=== PATIENT | female | born 1950 | race Hispanic/Latino ===

== ENCOUNTER 2017-08-06 08:04 | Outpatient (CLI) | payer OTHER | END 2017-08-06 08:05 | disposition home or self-care (01) | LOC: BICCT 08:04 | PROVIDERS: ATTEND Orthopaedic Surgery | DX: S92.002A Unspecified fracture of left calcaneus, initial encounter for closed fracture (principal); S92.012A Displaced fracture of body of left calcaneus, initial encounter for closed fracture ==

== ENCOUNTER → 2017-08-13 | Day surgery (SDC) | payer OTHER ==
[2017-08-12 10:17] VITALS: BMI 22.3
[~2017-08-13] MED LIST: CEFAZOLIN/Water 2 GM/20 ML SYRINGE ONE; Fentanyl 100 MCG/2 ML VIAL IV PRN; Fentanyl 100 MCG/2 ML VIAL ONE; Fentanyl 250 MCG/5 ML VIAL ONE; HYDROcodone/Acetaminophen 5/325 mg Tablet PO PRN; Midazolam HCl 2 mg/2 ml Vial ONE; Ondansetron HCl/PF 4 MG/2 ML Vial IVP PRN; Promethazine HCl 25 MG/ML VIAL IM PRN; Ropivacaine 0.2% 550 ML 550 ML NERVE BLCK SCH; Zolpidem Tartrate 5 MG TAB PO PRN; traMADol HCl 50 MG TAB PO PRN
--- NOTE | 2017-08-13 11:27 | RAD ---
TWO FLUOROSCOPIC VIEWS OF THE LEFT HEEL: Indication: Surgical repair. Comparison: None. FINDINGS: There is a lateral plate and screw fixating a comminuted calcaneal fracture. The calcaneal fracture p rojects in near anatomic alignment. Hardware projects in the expected position. Total fluoroscopic time: 17.8 seconds. Total exposure: 0.61 mGy*cm^2. IMPRESSION: ORIF left calcaneal fracture. POS: PELON
--- NOTE | 2017-08-13 16:47 | OP ---
DATE OF PROCEDURE: 08/13/2017 PREOPERATIVE DIAGNOSIS: Joint depression, calcaneal fracture, left. POSTOPERATIVE DIAGNOSIS: Joint depression, calcaneal fracture, left. SURGICAL PROCEDURE: Open reduction internal fixation, left calcaneus. ANESTHESIA: General. SURGEON: Enrrique Valles M.D. MEDICAL MANAGEMENT SPECIALIST: Tyson Lopez PA-C. TOURNIQUET TIME: 76 minutes at 300 mmHg. IMPLANTS: Synthes 2.7 mm variable angle locking calcaneal plate (small) with a combination of 2.7 mm metaphyseal and 2.7 mm locking screws. COMPLICATIONS: None. DRAINS: None. SPECIMEN: None. OUTCOME: Satisfactory. INDICATIONS: Ms. Aragon is a pleasant 67-year-old lady status post left calcaneal fracture. She i s now approximately a week and a half out from injury with CT scanning confirming this large depresse d joint segment and shortening of the calcaneus. After discussion with patient including risks and b enefits, we decided to proceed with open reduction internal fixation. PROCEDURE IN DETAIL: The patient was brought to the operating room and a timeout performed followed by induction of general anesthesia. The patient was positioned in a right lateral decubitus position and a sterile prep and drape was performed of the left lower extremity. The limb was then exsanguin ated with Esmarch bandage, tourniquet inflated to 300 mmHg. Next, an L-shaped lateral incision was m sony following the lateral border of the Achilles tendon and then curving 90 degrees at the posterior aspect of the calcaneus heading towards the calcaneocuboid joint. This flap was then developed full thickness all the way down to periosteum of the calcaneus. The dissection was carried distally such that the peroneal tendon was identified and this was reflected with a flap. Once fully developed, a K-wire was passed up the tip of the lateral malleolus and then bent to serve as a retractor. A secon d K-wire was placed in the cuboid also bent to place function as a retractor and then a final K-wire was placed at the anterior portion of the calcaneus again to function as a retractor. Once performed , the lateral wall was freed and hinged such that the comminuted and depressed joint could be identif ied. The joint was elevated temporarily and then the calcaneus shortening and slight varus alignment was corrected and checked with axial C-arm imaging to confirm that it could be corrected with gentle traction. Once proven that it was correctable, the joint surface was reduced and held in place prov isionally with a K-wire. This was then followed by insertion of cancellous bone chips to fill the vo id where the joint depression had been decompressed from. Once adequate cancellous chips were applie d to fill the void, the lateral wall fragments were then reduced and provisionally held in place with K-wires. This was then followed by placement of a 2.7 mm variable angle locking calcaneal plate serafin ng the lateral wall of the calcaneus. This was held in place provisionally with a metaphyseal screw posteriorly and the metaphyseal screw distally checked with C-arm alignment to ensure acceptable posi tioning and then a locking screw was placed across the subtalar joint. This was followed by a second locking screw into the subtalar joint to secure the joint surface fragment. Additional locking scre ws were then placed along the distal end of the lateral calcaneus as well as along the calcaneal tube rcle. Final lateral and axial images were obtained that showed episcopalian of calcaneal alignment wi th episcopalian of length correction of the varus alignment and episcopalian of the subtalar joint. Ne xt, all the K-wires were removed. Final C-arm images obtained and then the wound irrigated with bulb syringe. The perineal sling was checked for its integrity. There was found to be no obvious sublux ation of the peroneal tendon and as such the flap was closed over the plate in layers with 2-0 Vicryl deep and then nylon for the skin. A Xeroform gauze, Webril, and fiberglass splint was applied to th e ankle. Tourniquet was let down and then patient was transferred to recovery room in stable conditi on. There were no complications and the patient tolerated the procedure well.
== END ==
LOC: SDC 06:20
PROVIDERS: ATTEND Orthopaedic Surgery
PROC: 0QSM04Z Reposition Left Tarsal with Internal Fixation Device, Open Approach (ICD-10-PCS; principal; 2017-08-13)
DX: S92.012A Displaced fracture of body of left calcaneus, initial encounter for closed fracture (principal); Z88.1 Allergy status to other antibiotic agents
CPT/HCPCS: 76001; A4306; C1713; J2250; J2795; J3010

== ENCOUNTER 2017-10-28 14:47 | Outpatient (CLI) | payer OTHER, MEDICARE | END 2017-10-28 14:48 | disposition home or self-care (01) | LOC: BICMAMMO 14:47 | PROVIDERS: ATTEND Family Medicine | DX: Z12.31 Encounter for screening mammogram for malignant neoplasm of breast (principal); R92.1 Mammographic calcification found on diagnostic imaging of breast | CPT/HCPCS: 77063; 77067 ==

== ENCOUNTER 2019-01-31 13:39 | Outpatient (CLI) | payer MEDICARE ==
--- NOTE | 2019-01-31 14:24 | BD ---
DEXA BONE DENSITY STUDY: Date: 01/31/19 HISTORY: Osteoporosis screening. COMPARISON: None. FINDINGS: Lumbar Spine: BMD (g/cm2) L1 0.801 T-Score: -1.7 Z-Score: 0.0 L2 0.798 T-Score: -2.1 Z-Score: -0.2 L3 0.787 T-Score: -2.7 Z-Score: -0.7 L4 0.826 T-Score: -2.1 Z-Score: -0.1 L1-L4 0.801 T-Score: -2.2 Z-Score: -0.3 Left Femoral Neck: 0.597 T-Score: -2.3 Z-Score: -0.8 Total Femur: 0.744 T-Score: -1.6 Z-Score: -0.7 WHO Classification: Osteopenia. 10 Year Fracture Risk: Major osteoporotic fracture: 12% Hip fracture: 2.3% IMPRESSION: Osteopenia with elevated fracture risk as above. POS: PELON
== END 2019-01-31 13:40 | disposition home or self-care (01) ==
LOC: BICMAMMO 13:39
PROVIDERS: ATTEND Family Medicine
DX: M81.0 Age-related osteoporosis without current pathological fracture (principal); M85.89 Other specified disorders of bone density and structure, multiple sites
CPT/HCPCS: 77080

== ENCOUNTER 2021-03-20 13:20 | Outpatient (CLI) | payer MEDICARE | END 2021-03-20 13:21 | disposition home or self-care (01) | LOC: BICMAMMO 13:20 | PROVIDERS: ATTEND Family Medicine | DX: Z12.31 Encounter for screening mammogram for malignant neoplasm of breast (principal) | CPT/HCPCS: 77063; 77067 ==

== ENCOUNTER 2021-09-29 10:31 | Outpatient (CLI) | payer MEDICARE ==
[2021-09-29 11:54] LABS: Hemoglobin 13.6 g/dL (12.0-15.5); Mean Corpuscular HGB CONC 33.7 g/dL (32.0-36.0); Mean Corpuscular Volume 94.8 fl (81.6-98.3); Mean Platelet Volume 10.5 fl (7.4-10.4); Platelet Count 269 10x3/uL (150-450); RBC Distribution Width 12.9 % (11.5-14.5); Red Blood Cell (RBC) Count 4.25 10x6/uL (3.90-5.03); White Blood Cell (WBC) Count 4.5 10x3/uL (3.5-10.5)
[2021-09-29 12:03] LABS: Anion Gap 16 mmol/L (10-20); BUN (Urea Nitrogen) 16 mg/dL (9.8-20.1); Calc. Creatinine Clearance 0 mL/min (70-130); Calcium 8.8 mg/dL (7.8-10.44); Carbon Dioxide 23 mmol/L (23-31); Chloride 106 mmol/L (98-107); Glucose 174 mg/dL (80-115); INR-International Normal Ratio 0.9; PTT 27.4 sec (22.0-33.0); Potassium 4.3 mmol/L (3.5-5.1); Prothrombin Time 10.2 sec (9.5-12.1); Sodium 141 mmol/L (136-145)
[2021-09-29 19:53] LABS: SARS-CoV-2 PCR by NAA Not Detected (NotDetected)
== END 2021-09-29 10:32 | disposition home or self-care (01) ==
LOC: LABBT 10:31
PROVIDERS: ATTEND Surgery
DX: Z01.818 Encounter for other preprocedural examination (principal); M51.16 Intervertebral disc disorders with radiculopathy, lumbar region; M48.062 Spinal stenosis, lumbar region with neurogenic claudication; Z20.822 Contact with and (suspected) exposure to COVID-19
CPT/HCPCS: 80048; 85027; 85610; 85730; 93005; U0003; U0005; 93010

== ENCOUNTER 2021-10-02 08:16 | Observation (INO) | payer MEDICARE ==
[2021-09-30 10:26] VITALS: BMI 23.8
[2021-10-02] MEDS ORDERED: Thrombin 5000 UNITS/5 ML VIAL ONE (10:11)
[2021-10-02] MEDS ORDERED: Fentanyl 250 MCG/5 ML VIAL ONE (10:20)
[2021-10-02] MEDS ORDERED: ceFAZolin (BATCH) 2 GM/100 ML BAG ONE (10:23)
[2021-10-02] MEDS ORDERED: PHENYLEPHRINE-NS 100 MCG/ML 10 ML SYRINGE ONE (10:41)
[2021-10-02] MEDS ORDERED: Dexamethasone 20 MG/5 ML VIAL ONE (10:41)
[2021-10-02] MEDS ORDERED: PROPOFOL 200 MG/20 ML VIAL ONE (10:41)
[2021-10-02] MEDS ORDERED: Ondansetron PF 4 MG/2 ML Vial ONE (10:41)
[2021-10-02] MEDS ORDERED: Rocuronium Bromide 10 MG/ML (10ML VIAL) ONE (10:41)
[2021-10-02] MEDS ORDERED: Glycopyrrolate 0.2 MG/ML 5 ML SYRINGE ONE (10:41)
[2021-10-02] MEDS ORDERED: Lidocaine 1% PF 5 ML VIAL ONE (10:41)
[2021-10-02] MEDS ORDERED: Ketorolac Tromethamine 30 MG/ML VIAL ONE (10:41)
[2021-10-02] MEDS ORDERED: ePHEDrine 50 MG/ML VIAL ONE (10:41)
[2021-10-02] MEDS ORDERED: Acetaminophen/Codeine 30-300mg Tablet PO PRN (12:42)
[2021-10-02] MEDS ORDERED: Acetaminophen 325 MG TAB PO PRN (12:42)
[2021-10-02] MEDS ORDERED: HYDROcodone/Acetaminophen 7.5/325 mg Tablet PO PRN (12:42)
[2021-10-02] MEDS ORDERED: Morphine 2 MG/ML VIAL SLOW IVP PRN (12:42)
[2021-10-02] MEDS ORDERED: traMADol HCl 50 MG TAB PO PRN (12:42)
[2021-10-02] MEDS ORDERED: Ondansetron PF 4 MG/2 ML Vial IVP PRN (12:42)
[2021-10-02] MEDS ORDERED: Docusate 100 MG CAP PO PRN (12:45)
[2021-10-02] MEDS ORDERED: tiZANidine HCl 4 MG TAB PO PRN (12:45)
[2021-10-02] MEDS ORDERED: Polyethylene Glycol 3350 17 GM Packet PO PRN (12:45)
[2021-10-02] MEDS ORDERED: Estradiol 0.01% Vaginal Cream 42.5 gm Tube VAG SCH (12:45)
[2021-10-02] MEDS ORDERED: hydrALAZINE 20 MG/ML VIAL SLOW IVP PRN (12:45)
[2021-10-02] MEDS ORDERED: Promethazine HCl 25 MG/ML VIAL IVPB PRN (12:50)
[2021-10-02] MEDS ORDERED: PACU-Morphine 4MG/ML VIAL SLOW IVP PRN (12:50)
[2021-10-02] MEDS ORDERED: Morphine Sulfate 2 MG/ML SYRINGE SLOW IVP PRN (12:50)
[2021-10-02] MEDS ORDERED: HYDROmorphone 2 MG/ML VIAL SLOW IVP PRN (12:50)
[2021-10-02] MEDS ORDERED: Promethazine HCl 25 MG/ML VIAL IM PRN (12:50)
[2021-10-02] MEDS ORDERED: Ondansetron HCl/PF 4 MG/2 ML Vial IVP PRN (12:50)
[2021-10-02] MEDS ORDERED: HYDROmorphone 0.5 MG/0.5 ML SYRINGE ONE (12:58)
[2021-10-02] MEDS ORDERED: Fentanyl 100 MCG/2 ML VIAL ONE ×2 (13:08→13:50)
[2021-10-02] MEDS ORDERED: hydrALAZINE 20 MG/ML VIAL ONE (14:41)
[2021-10-02] MEDS: Sodium Chloride 0.9% 1,000 ML IV SCH (17:04)
[2021-10-02] MEDS: ceFAZolin (BATCH) 2 GM in Premix Bag 1 BAG IVPB SCH (17:04)
[2021-10-02] MEDS ORDERED: ceFAZolin 2 GM/Dextrose 50 ML 2 GM in Premix Bag 1 BAG IVPB SCH (18:00)
[2021-10-02] MEDS ORDERED: CAL MAG ZINC PO SCH (21:00)
[2021-10-03] MEDS: ceFAZolin (BATCH) 2 GM in Premix Bag 1 BAG IVPB SCH (01:41)
[2021-10-03] MEDS: Sodium Chloride 0.9% 1,000 ML IV SCH (04:12)
[2021-10-03] MEDS ORDERED: Multivitamin W/ Minerals 1 TAB PO SCH (09:00)
[2021-10-03] MEDS ORDERED: METHYL B12 PO SCH (09:00)
[2021-10-03] MEDS ORDERED: Non-Formulary Item 1 EACH (Multivit-Min/Iron/Folic/Lutein [Centrum Silver Women] 1 TABLET PO SCH (09:00)
[2021-10-03] MEDS ORDERED: Non-Formulary Item 1 EACH (Cholecalciferol (Vitamin D3) [Vitamin D3] 2,000 UNIT Capsule) PO SCH (09:00)
[2021-10-03] MEDS ORDERED: BIOTIN 2500 MCG PO SCH ×2 (09:00)
[2021-10-03] MEDS ORDERED: Cyanocobalamin (Vitamin B-12) 1,000 MCG TAB PO SCH (09:00)
[2021-10-03] MEDS ORDERED: Cholecalciferol 1,000 UNITS (25 MCG) TAB PO SCH (09:00)
[2021-10-03 11:38] VITALS: BP 162/63; TEMP 97.8
== END 2021-10-03 13:01 | disposition home or self-care (01) ==
LOC: SDC 08:16 → SURG A 12:42
PROVIDERS: ADMIT Surgery; ATTEND Surgery
PROC: 01NB0ZZ Release Lumbar Nerve, Open Approach (ICD-10-PCS; principal; 2021-10-02)
PROC: 0SB40ZZ Excision of Lumbosacral Disc, Open Approach (ICD-10-PCS; 2021-10-02)
DX: M48.061 Spinal stenosis, lumbar region without neurogenic claudication (principal); M51.16 Intervertebral disc disorders with radiculopathy, lumbar region; M51.27 Other intervertebral disc displacement, lumbosacral region; Z79.82 Long term (current) use of aspirin; Z79.899 Other long term (current) drug therapy; Z88.1 Allergy status to other antibiotic agents
CPT/HCPCS: 63047; 63048; 76000; 96365; G0378 ×2; J0360; J0690; J1100; J1170; J1885; J2405; J2704; J3010; J3370; J3490; J7050

== ENCOUNTER 2022-03-25 14:08 | Outpatient (CLI) | payer MEDICARE | END 2022-03-25 14:09 | disposition home or self-care (01) | LOC: BICMAMMO 14:08 | PROVIDERS: ATTEND Family Medicine | DX: Z12.31 Encounter for screening mammogram for malignant neoplasm of breast (principal) | CPT/HCPCS: 77063; 77067 ==

== ENCOUNTER 2022-08-31 13:46 | Outpatient (CLI) | payer MEDICARE ==
[~2022-08-31 13:46] MED LIST changes: -CEFAZOLIN/Water 2 GM/20 ML SYRINGE ONE; -Fentanyl 100 MCG/2 ML VIAL IV PRN; -Fentanyl 100 MCG/2 ML VIAL ONE; -Fentanyl 250 MCG/5 ML VIAL ONE; -HYDROcodone/Acetaminophen 5/325 mg Tablet PO PRN; +Magnevist 469MG/ML 20 ML VIAL ONE; -Midazolam HCl 2 mg/2 ml Vial ONE; -Ondansetron HCl/PF 4 MG/2 ML Vial IVP PRN; -Promethazine HCl 25 MG/ML VIAL IM PRN; -Ropivacaine 0.2% 550 ML 550 ML NERVE BLCK SCH; -Zolpidem Tartrate 5 MG TAB PO PRN; -traMADol HCl 50 MG TAB PO PRN
== END 2022-08-31 13:47 | disposition home or self-care (01) ==
LOC: TBSIIMAG 13:46
PROVIDERS: ATTEND Surgery
DX: M51.16 Intervertebral disc disorders with radiculopathy, lumbar region (principal); M47.816 Spondylosis without myelopathy or radiculopathy, lumbar region; M89.38 Hypertrophy of bone, other site; M51.37 Other intervertebral disc degeneration, lumbosacral region; L90.5 Scar conditions and fibrosis of skin; Z98.890 Other specified postprocedural states
CPT/HCPCS: 72120; 72158; A9579

== ENCOUNTER 2023-04-23 13:25 | Outpatient (CLI) | payer MEDICARE | END 2023-04-23 13:26 | disposition home or self-care (01) | LOC: BICMAMMO 13:25 | PROVIDERS: ATTEND Family Medicine | DX: Z12.31 Encounter for screening mammogram for malignant neoplasm of breast (principal); Z80.3 Family history of malignant neoplasm of breast | CPT/HCPCS: 77063; 77067 ==

== ENCOUNTER 2025-05-15 13:06 | Outpatient (CLI) | payer MEDICARE | END 2025-05-15 13:07 | disposition home or self-care (01) | LOC: BICMAMMO 13:06 | PROVIDERS: ATTEND Emergency Medicine | DX: Z12.31 Encounter for screening mammogram for malignant neoplasm of breast (principal); Z80.3 Family history of malignant neoplasm of breast | CPT/HCPCS: 77063; 77067 ==